=== PATIENT | male | born 1945 | race Caucasian/White ===

== ENCOUNTER 2018-12-23 09:47 | Emergency (ER) | payer MEDICARE, OTHER, SELFPAY ==
[~2018-12-23] VITALS: Ht 180.3 cm; Wt 98.0 kg
[2018-12-23 11:33] LABS: BASOPHILS % 1.3 % (0.0-2.0); EOSINOPHILS % 5.3 % (0.0-5.0); HEMATOCRIT. 38.3 % (42.0-52.0); HEMOGLOBIN. 12.6 g/dL (14.0-18.0); LYMPHOCYTES % 18.5 % (20.0-50.0); MEAN CORPUSCULAR HEMOGLOBIN 27.6 pg (28.0-32.0); MEAN CORPUSCULAR VOLUME 83.8 fL (80.0-94.0); MEAN PLATELET VOLUME 7.3 fl (7.4-10.4); MONOCYTES % 7.5 % (2.0-8.0); NEUTROPHILS % 67.4 % (40.0-76.0); PLATELET 271 x1000/uL (130-400); RED BLOOD CELL COUNT 4.57 mill/uL (4.7-6.1); RED CELL DISTRIBUTION WIDTH 15.8 % (11.6-14.6)
[2018-12-23 11:40] LABS: CHLORIDE 112 mEq/L (98-107)
[2018-12-23 12:50] VITALS: BP 159/67
== END 2018-12-23 13:00 | disposition home or self-care (01) ==
LOC: ER 09:47
DX: E11.621 Type 2 diabetes mellitus with foot ulcer (principal); E11.65 Type 2 diabetes mellitus with hyperglycemia; L97.529 Non-pressure chronic ulcer of other part of left foot with unspecified severity; L97.519 Non-pressure chronic ulcer of other part of right foot with unspecified severity; Z79.4 Long term (current) use of insulin; Z89.412 Acquired absence of left great toe; Z89.422 Acquired absence of other left toe(s)
CPT/HCPCS: 36415; 73630; 99284

== ENCOUNTER 2018-12-30 11:58 | Emergency (ER) | payer MEDICARE ==
[~2018-12-30] VITALS: Ht 180.3 cm; Wt 97.0 kg
[2018-12-30 16:00] VITALS: BP 157/70
[2018-12-30] MEDS ORDERED: IBUPROFEN 400MG TABLET PO ONE (16:30)
== END 2018-12-30 17:06 | disposition home or self-care (01) ==
LOC: ER 11:58
DX: M25.511 Pain in right shoulder (principal); W01.0XXA Fall on same level from slipping, tripping and stumbling without subsequent striking against object, initial encounter; Y93.89 Activity, other specified; Z09 Encounter for follow-up examination after completed treatment for conditions other than malignant neoplasm; I10 Essential (primary) hypertension; Y92.017 Garden or yard in single-family (private) house as the place of occurrence of the external cause; M19.011 Primary osteoarthritis, right shoulder; Z89.422 Acquired absence of other left toe(s)
CPT/HCPCS: 73030; 73060; 99283

== ENCOUNTER 2019-03-25 10:52 | Emergency (ER) | payer MEDICARE ==
[~2019-03-25] VITALS: Ht 172.7 cm; Wt 100.0 kg
[2019-03-25 14:18] VITALS: BP 151/60
== END 2019-03-25 14:20 | disposition home or self-care (01) ==
LOC: ER 10:52
DX: J06.9 Acute upper respiratory infection, unspecified (principal); I10 Essential (primary) hypertension; E11.9 Type 2 diabetes mellitus without complications; E78.00 Pure hypercholesterolemia, unspecified
CPT/HCPCS: 71045; 87804; 93005; 99284